=== PATIENT | female | born 1995 | race Caucasian/White ===

== ENCOUNTER 2021-10-20 23:28 | Emergency (ER) | payer SELFPAY ==
[~2021-10-20] VITALS: Ht 160 cm; Wt 47.6 kg
[2021-10-20 23:37] VITALS: BP 108/73
--- NOTE | 2021-10-20 23:41 | NUR ---
BIBA TAKEN TO BED#12
--- NOTE | 2021-10-20 23:41 | NUR ---
MICHAEL FROM HOME C/O ETOH WITH SYCOPE EPISODE WITH PD. PT IS UNCOOPERATIVE AT THIS TIME. SPIT MASK IN PLACE. PT HAS BEEN [place]UST[place] MARKX- UNKNOWN ALLX- UNOBTAINABLE michael leblanc Addendum: 10/21/21 at 0405 by F[place]ON PT HAS BEEN BELIGERANT
[2021-10-20] MEDS ORDERED: NACL 0.9% 1,000 ML IV ONE (23:55)
[2021-10-20] MEDS ORDERED: ZIPRASIDONE MESYLATE 20 MG/ML VIAL IM ONE ×2 (23:55→23:57)
[2021-10-20] MEDS ORDERED: WATER STERILE 10 ML MC ONE (23:58)
--- NOTE | 2021-10-21 00:43 | NUR ---
IS AWAKE, SCREAMING.
--- NOTE | 2021-10-21 02:00 | NUR ---
RESTING QUIETLY AT THIS TIME. LINENS CHANGED, POSITIONED FOR COMFORT
--- NOTE | 2021-10-21 05:00 | NUR ---
AWAKENS NOW. IS PLEASANT AND COOPERATIVE.
[2021-10-21 05:27] VITALS: BP 104/68
--- NOTE | 2021-10-21 05:27 | NUR ---
Patient discharged with v/s stable. Written and verbal after care instructions given and explained. Patient verbalized understanding. Ambulatory with steady gait. All questions addressed prior to discharge. Advised to follow up with PMD.
== END 2021-10-21 05:27 | disposition home or self-care (01) ==
LOC: MED 23:28
DX: F10.129 Alcohol abuse with intoxication, unspecified (principal); R41.82 Altered mental status, unspecified
CPT/HCPCS: 96360; 96372; 99283; J3486; J7030